=== PATIENT | female | born 1940 | race Caucasian/White ===

== ENCOUNTER 2016-07-10 23:59 | Emergency (ER) | payer MEDICARE ==
--- NOTE | ~2016-07-10 | CR72 ---
[facility] A Service of [facility] / [facility] RADIOLOGY TEXT RESULTS PATIENT: MITCHEL MONTANEZ LOCATION: [facility] : 36 UNIT #: [id number] AGE: [address]: Juanjose Nixon MD SEX: F ORDER DR: [id number] [facility] [address] [place], [place] [address] [id number] E MR#: [id number] Acc #: [id number] NAME: MITCHEL MONTANEZ : 1940 SEX: F STUDY DATE/TIME: 07/11/2016 1:27 UNIT: [facility] ROOM: STUDY DESCRIPTION: CR Chest Single View Portable Attending Physician: Wilbert Nixon M.D. Ordering Physician: Wilbert Nixon M.D. Primary Care Physician: No Primary Care Physician MEDICAL IMAGING REPORT This report is preliminary unless electronic signature is present EXAM AP portable chest 07/11/2016 at 0127 HISTORY Cough, runny nose, and shortness of breath for 3 days. History of anemia and congestive heart failure. Hypertension. COMPARISON AP portable chest 10/20/2015. CT chest 10/21/2015. FINDINGS A small right pleural effusion and/or pleural thickening is present with suspected mild right basilar atelectasis. Multiple old right rib fractures. Left lung appears clear. Emphysematous changes are present. Heart size is upper limits normal but stable. Calcification is seen within the descending thoracic aorta, unchanged. There is thoracolumbar scoliosis with osteopenic change. IMPRESSION 1. Small right pleural effusion or chronic pleural thickening with mild right basilar atelectasis. No acute-appearing lung consolidations are identified. 2. Emphysema. 3. Thoracolumbar scoliosis. Dictated by... Lali Chand M.D. THIS IS AN ELECTRONICALLY VERIFIED REPORT Lali Chand M.D. at 07/12/2016 1:51 AM [facility] A Service of [facility] / [facility] RADIOLOGY TEXT RESULTS PATIENT: MITCHEL MONTANEZ LOCATION: [facility] : 36 UNIT #: [id number] AGE: [address]: Juanjose Nixon MD SEX: F ORDER DR: TD: 07/11/2016 11:10 JOB #: [id number] MEDICAL IMAGING REPORT COPY
[~2016-07-10 23:59] MED LIST: ALBUTEROL17 GM INH; CLINDAMYCIN HC300 MG PO; FOLIC ACID PO; LEVAQUIN750 M1 PO; METOPROLOL SUCC25 MG PO; MOBIC PO; NEURONTIN600 MG PO; OXYCODONE HCL10 MG PO; PRAVASTATIN SOD10 MG PO; REMERON30 MG PO; SENEXON-S TABL1 EACH PO
[2016-07-11 02:26] LABS: INFLUENZA A NEG (NEG); INFLUENZA B NEG (NEG)
== END 2016-07-11 03:07 | disposition home or self-care (01) ==
LOC: CED 23:59
PROVIDERS: Emergency Medicine
DX: J20.9 Acute bronchitis, unspecified (principal); J42 Unspecified chronic bronchitis; F32.9 Major depressive disorder, single episode, unspecified; Z86.2 Personal history of diseases of the blood and blood-forming organs and certain disorders involving the immune mechanism; Z79.899 Other long term (current) drug therapy; Z88.2 Allergy status to sulfonamides
CPT/HCPCS: 71010; 87804; 94644; 99283